=== PATIENT | female | born 1985 | race Caucasian/White ===

== ENCOUNTER 2018-01-19 14:39 | Emergency (ER) | payer MEDICAID ==
[~2018-01-19] VITALS: Ht 175.3 cm; Wt 72.6 kg
--- NOTE | 2018-01-19 14:40 | NUR ---
PATIENT IS AWAKE AND ALERT....
[2018-01-19] MEDS ORDERED: LEXAPRIL (14:54)
[2018-01-19] MEDS ORDERED: TRAZ-214 PO (14:54)
[2018-01-19] MEDS ORDERED: LAMO25TA5 PO (14:54)
[2018-01-19] MEDS ORDERED: ALPR0.5T8 PO (14:54)
[2018-01-19] MEDS ORDERED: OLANZAPINE 10 MG VIAL IM ONE (15:22)
[2018-01-19] MEDS: OLANZAPINE 10 MG VIAL IM ONE (15:28)
[2018-01-19 15:30] LABS: BASOPHILS % (AUTO) 0.6 % (0.0-2.0); EOSINOPHILS # (AUTO) 0.2 K/uL (0.0-0.7); EOSINOPHILS % (AUTO) 2.7 % (0.0-7.0); HEMATOCRIT 38.5 % (31.2-41.9); HEMOGLOBIN 12.9 g/dL (10.9-14.3); LYMPHOCYTES # (AUTO) 1.6 K/uL (20.0-40.0); LYMPHOCYTES % (AUTO) 21.7 % (20.5-51.5); MEAN CORPUSCULAR HEMOGLOBIN 28.2 uug (24.7-32.8); MEAN CORPUSCULAR HGB CONC 33 g/dL (32.3-35.6); MEAN CORPUSCULAR VOLUME 84.5 fL (75.5-95.3); MONOCYTES # (AUTO) 0.7 K/uL (2.0-10.0); MONOCYTES % (AUTO) 8.7 % (0.0-11.0); NEUTROPHILS # (AUTO) 5.1 K/uL (1.8-8.9); NEUTROPHILS % (AUTO) 66.3 % (38.5-71.5); PLATELET COUNT (AUTO) 187 K/uL (179-408); RED BLOOD CELL COUNT(AUTO) 4.56 MIL/uL (3.63-4.92); WHITE BLOOD COUNT (AUTO) 7.6 K/uL (3.8-11.8)
[2018-01-19 15:38] LABS: ALANINE AMINOTRANSFERASE 19 U/L (14-59); ALKALINE PHOSPHATASE 31 U/L (50-136); ASPARTATE AMINOTRANSFERASE 15 U/L (15-37); BILIRUBIN,DIRECT 0.1 mg/dL (0.0-0.2); BILIRUBIN,TOTAL 0.3 mg/dL (0.2-1.0); CARBON DIOXIDE 31 mmol/L (21-32); CHLORIDE 104 mmol/L (98-107); CREATININE 0.7 mg/dL (0.6-1.3); GLUCOSE 92 mg/dL (74-106); POTASSIUM 4.4 mmol/L (3.5-5.1); TOTAL PROTEIN, SERUM 6.5 g/dL (6.4-8.2); UREA NITROGEN, BLOOD 16 mg/dL (7-18)
[2018-01-19 15:40] LABS: ACETAMINOPHEN < 2.0 ug/mL (10-30)
[2018-01-19 15:54] LABS: ETHANOL < 3 MG/DL (0-0)
--- NOTE | 2018-01-19 16:18 | NUR ---
PATIENT IS MORE CALM NOW...
--- NOTE | 2018-01-19 16:27 | NUR ---
PATIENT STATES SHE UNDERSTANDS THAT SHE CANNOT DRIVE AT ALL TODAY. STATES SHE WILL CALL HER BOYFRIEND TO DRIVE HER HOME OR [employer]. I TOLD HER TO CALL THAT HER BOYFRIEND WOULD BE A BETTER OPTION.. FOR SAFETY REASONS.
--- NOTE | 2018-01-19 17:16 | NUR ---
PATIENT STATES SHE CALLED HER BOYFRIEND TO DRIVE HER HOME. SHE AMBULATED TO BATHROOM AND BACK TO BED.
--- NOTE | 2018-01-19 17:28 | NUR ---
DR MATTSON AT BEDSIDE SPEAKING TO PATIENT
--- NOTE | 2018-01-19 17:55 | NUR ---
PATIENT'S ROOMATE IS HERE TO DRIVE PATIENT HOME.
--- NOTE | 2018-01-19 17:55 | NUR ---
DC AND FOLLOW UP INSTRUCTIONS GIVEN AND EXPLAINED TO PATIENT WHO STATES SHE UNDERSTANDS ALL INSTRUCTIONS. SHE IS AMBULATORY WITH STEADY GAIT
[2018-01-19 18:11] VITALS: BP 110/52
== END 2018-01-19 18:12 | disposition home or self-care (01) ==
LOC: ER 14:39
DX: F41.9 Anxiety disorder, unspecified (principal); F32.9 Major depressive disorder, single episode, unspecified; Z88.2 Allergy status to sulfonamides
CPT/HCPCS: 36415; 84703; 85025; A4663; G0480; G0480-TC; J2358

== ENCOUNTER 2018-02-23 22:28 | Emergency (ER) | payer MEDICAID ==
[~2018-02-23] VITALS: Ht 175.3 cm; Wt 79.4 kg
[~2018-02-23 22:28] MED LIST: ALPR0.5T8 PO; LAMO25TA5 PO; LEXAPRIL; TRAZ-214 PO
--- NOTE | 2018-02-24 | NUR ---
MD DÍAZ AT BEDSIDE FOR MSE
[2018-02-24] MEDS ORDERED: KETOROLAC TROMETHAMINE 60 MG INJ IM ONE ×2 (00:08→00:17)
--- NOTE | 2018-02-24 00:30 | NUR ---
PT IN ROUTE TO CT IN WHEELCHAIR WITH TRANSPORTER
--- NOTE | 2018-02-24 00:41 | NUR ---
PT RETURNS FROM CT IN WHEELCHAIR WITH TRANSPORTER
--- NOTE | 2018-02-24 01:50 | NUR ---
Patient discharged to home in stable conditon. Written and verbal after care instructions given. Patient verbalizes understanding of instructions. Patient able to ambulate unassisted with a steady gait. Patient left with all personal belongings.
[2018-02-24 02:04] VITALS: BP 122/80
== END 2018-02-24 01:50 | disposition home or self-care (01) ==
LOC: ER 22:30
DX: S66.912A Strain of unspecified muscle, fascia and tendon at wrist and hand level, left hand, initial encounter (principal); S86.912A Strain of unspecified muscle(s) and tendon(s) at lower leg level, left leg, initial encounter; R51 Headache; Z88.2 Allergy status to sulfonamides; V43.52XA Car driver injured in collision with other type car in traffic accident, initial encounter; Y93.89 Activity, other specified; Y92.410 Unspecified street and highway as the place of occurrence of the external cause; Y99.8 Other external cause status
CPT/HCPCS: 70450; 71045; 73020; 73100; 73560; A4663; J1885

== ENCOUNTER 2018-10-12 19:43 | Emergency (ER) | payer MEDICAID ==
[~2018-10-12] VITALS: Ht 175.3 cm; Wt 90.7 kg
[2018-10-12] MEDS ORDERED: ATOM40CA PO (20:10)
[2018-10-12] MEDS ORDERED: LORAZEPAM 2 MG TABLET PO (20:10)
[2018-10-12] MEDS ORDERED: ARIP10TA9 PO (20:10)
[2018-10-12] MEDS ORDERED: ESCI10TA PO (20:10)
--- NOTE | 2018-10-12 20:11 | NUR ---
Patient in bed, pending ER MD evaluation. no acute distress noted. VSS
--- NOTE | 2018-10-12 20:53 | NUR ---
Patient discharged to home in stable conditon. Written and verbal after care instructions given. Patient verbalizes understanding of instructions. Ambulated from ER with stable gait. All belongings with patient.
[2018-10-12 20:54] VITALS: BP 141/81
== END 2018-10-12 20:55 | disposition home or self-care (01) ==
LOC: ER 19:45
DX: S50.12XA Contusion of left forearm, initial encounter (principal); Z88.2 Allergy status to sulfonamides; F15.10 Other stimulant abuse, uncomplicated; Z79.899 Other long term (current) drug therapy; X58.XXXA Exposure to other specified factors, initial encounter; Y93.89 Activity, other specified; Y92.89 Other specified places as the place of occurrence of the external cause; Y99.8 Other external cause status
CPT/HCPCS: 73090; A4663

== ENCOUNTER 2019-03-17 13:01 | Emergency (ER) | payer MEDICAID ==
[~2019-03-17] VITALS: Ht 175.3 cm; Wt 95.3 kg
[~2019-03-17 13:01] MED LIST changes: -ALPR0.5T8 PO; +ARIP10TA9 PO; +ATOM40CA PO; +ESCI10TA PO; -LEXAPRIL; +LORAZEPAM 2 MG TABLET PO
[2019-03-17] MEDS ORDERED: ONDANSETRON 4 MG/2 ML VIAL IM ONE (13:15)
[2019-03-17] MEDS ORDERED: IBUPROFEN 600 MG TABLET PO ONE (13:30)
[2019-03-17 13:32] LABS: *BILIRUBIN,URIN NEGATIVE (NEGATIVE); *BLOOD, URINE 2+ (NEGATIVE); *COLOR,URINE YELLOW (YELLOW); *KETONES,URINE NEGATIVE (NEGATIVE); *UROBILINOGEN,URINE 0.2 E.U./dl (NORMAL); LEUKOCYTE ESTERASE ,URINE NEGATIVE (NEGATIVE); NITRITE, URINE NEGATIVE (NEGATIVE); PH,URINE 6.5 (5.0-8.0); UGLUCOSE NEGATIVE (NEGATIVE)
[2019-03-17 13:33] LABS: *CLARITY,URINE HAZY (CLEAR)
[2019-03-17 13:35] LABS: *URINE HCG, QUAL NEGATIVE (NEGATIVE)
[2019-03-17] MEDS ORDERED: IBUPROFEN 600 MG TABLET ONE (13:35)
[2019-03-17] MEDS ORDERED: ONDANSETRON 4 MG/2 ML VIAL ONE (13:35)
[2019-03-17 13:37] LABS: BASOPHILS % (AUTO) 0.5 % (0.0-2.0); EOSINOPHILS # (AUTO) 0.1 K/uL (0.0-0.7); EOSINOPHILS % (AUTO) 1.4 % (0.0-7.0); HEMATOCRIT 39.8 % (31.2-41.9); HEMOGLOBIN 12.9 g/dL (10.9-14.3); LYMPHOCYTES # (AUTO) 1.5 K/uL (20.0-40.0); LYMPHOCYTES % (AUTO) 18.7 % (20.5-51.5); MEAN CORPUSCULAR HEMOGLOBIN 25.7 uug (24.7-32.8); MEAN CORPUSCULAR HGB CONC 32 g/dL (32.3-35.6); MEAN CORPUSCULAR VOLUME 79.4 fL (75.5-95.3); MONOCYTES # (AUTO) 0.8 K/uL (2.0-10.0); MONOCYTES % (AUTO) 10.2 % (0.0-11.0); NEUTROPHILS # (AUTO) 5.6 K/uL (1.8-8.9); NEUTROPHILS % (AUTO) 69.2 % (38.5-71.5); PLATELET COUNT (AUTO) 232 K/uL (179-408); RED BLOOD CELL COUNT(AUTO) 5.02 MIL/uL (3.63-4.92)
[2019-03-17 13:42] LABS: RBC,URINE 0-3 /HPF (0-3)
[2019-03-17 13:44] LABS: BACTERIA,URINE FEW /HPF (NONE SEEN); WBC,URINE 0-3 /HPF (0-3)
[2019-03-17 13:45] LABS: MUCUS,URINE FEW /LPF (0-FEW); SQUAMOUS EPITHELIAL CELL,UR MODERATE /HPF (NONE SEEN)
[2019-03-17 14:20] LABS: CREATININE 0.8 mg/dL (0.6-1.3); POTASSIUM 3.9 mmol/L (3.5-5.1)
--- NOTE | 2019-03-17 14:20 | NUR ---
PATIENT WAS SEEN BY MD. OTT AND IBUPROFEN WAS GIVEN ORDERED. PATIENT STATES PAIN AND NAUSEA HAVE DIMINISHED. DC, RX AND FOLLOW UP INSTRUCTIONS GIVEN AND EXPLAINED TO PATIENT WHO STATES SHE UNDERSTANDS ALL INSTRUCTIONS.
[2019-03-17 14:26] LABS: BILIRUBIN,DIRECT 0.1 mg/dL (0.0-0.2); BILIRUBIN,TOTAL 0.3 mg/dL (0.2-1.0); TOTAL PROTEIN, SERUM 7.3 g/dL (6.4-8.2)
== END 2019-03-17 14:21 | disposition home or self-care (01) ==
LOC: ER 13:01
DX: K21.0 Gastro-esophageal reflux disease with esophagitis (principal); F32.9 Major depressive disorder, single episode, unspecified; F41.9 Anxiety disorder, unspecified; F15.10 Other stimulant abuse, uncomplicated; Z88.2 Allergy status to sulfonamides; Z79.899 Other long term (current) drug therapy
CPT/HCPCS: 36415; 80048; 80076; 81000; 81001; 83690; 84703; 85025; 96372; 99283; J2405; A4663

== ENCOUNTER 2023-02-12 21:14 | Emergency (ER) | payer MEDICAID ==
[~2023-02-12] VITALS: Ht 175.3 cm; Wt 89.8 kg
[~2023-02-12 21:14] MED LIST changes: -ARIP10TA9 PO; -ATOM40CA PO; -TRAZ-214 PO; +TRAZ-257 PO
[2023-02-12 21:58] LABS: BASOPHILS # (AUTO) 0.1 K/UL (0.0-0.2); BASOPHILS % (AUTO) 0.7 % (0.0-2.0); EOSINOPHILS # (AUTO) 0.1 K/uL (0.0-0.7); EOSINOPHILS % (AUTO) 0.9 % (0.0-7.0); HEMATOCRIT 41.5 % (31.2-41.9); HEMOGLOBIN 14.1 g/dL (10.9-14.3); LYMPHOCYTES # (AUTO) 2.4 K/uL (0.8-4.8); LYMPHOCYTES % (AUTO) 27.6 % (20.5-51.5); MEAN CORPUSCULAR HEMOGLOBIN 28.4 uug (24.7-32.8); MEAN CORPUSCULAR HGB CONC 34 g/dL (32.3-35.6); MEAN CORPUSCULAR VOLUME 83.4 fL (75.5-95.3); MONOCYTES # (AUTO) 0.8 K/uL (0.1-1.30); MONOCYTES % (AUTO) 8.6 % (0.0-11.0); NEUTROPHILS # (AUTO) 5.5 K/uL (1.8-8.9); NEUTROPHILS % (AUTO) 62.2 % (38.5-71.5); PLATELET COUNT (AUTO) 284 K/uL (179-408); RED BLOOD CELL COUNT(AUTO) 4.97 MIL/uL (3.63-4.92); RED CELL DISTRIBUTION WIDTH 15.1 % (12.3-17.7); WHITE BLOOD COUNT (AUTO) 8.8 K/uL (3.8-11.8)
[2023-02-12 22:04] LABS: DIFFERENTIAL COMMENT 1
[2023-02-12 22:05] LABS: *URINE HCG, QUAL NEGATIVE (NEGATIVE)
[2023-02-12 22:12] LABS: CALCIUM 9.4 mg/dL (8.5-10.1); CARBON DIOXIDE 29 mmol/L (21-32); CHLORIDE 100 mmol/L (98-107); CREATININE 0.9 mg/dL (0.6-1.3); GLUCOSE 83 mg/dL (74-106); POTASSIUM 3.6 mmol/L (3.5-5.1); SODIUM SERUM 139 mmol/L (136-145); UREA NITROGEN, BLOOD 6 mg/dL (7-18)
[2023-02-12 22:28] LABS: ALANINE AMINOTRANSFERASE 16 U/L (14-59); ALBUMIN 3.8 g/dL (3.4-5.0); ALKALINE PHOSPHATASE 45 U/L (50-136); ASPARTATE AMINOTRANSFERASE 13 U/L (15-37); BILIRUBIN,DIRECT 0.2 mg/dL (0.0-0.2); BILIRUBIN,TOTAL 0.4 mg/dL (0.2-1.0); NT-PRO BNP 133 pg/mL (0-125); TOTAL PROTEIN, SERUM 7.1 g/dL (6.4-8.2)
[2023-02-12 23:13] VITALS: BP 130/85; TEMP 98.3; O2SAT 100
== END 2023-02-12 23:14 | disposition home or self-care (01) ==
LOC: ER 21:18
DX: R07.89 Other chest pain (principal); Z88.2 Allergy status to sulfonamides; Z79.899 Other long term (current) drug therapy
CPT/HCPCS: 36415; 71045; 84484; 84703; 85025; 93005; A4663